=== PATIENT | male | born 1945 | race Caucasian/White ===

== ENCOUNTER → 2019-09-15 12:54 | Oncology outpatient (ONC) | payer OTHER, SELFPAY ==
[2019-09-15 13:27] VITALS: BP 129/73; PULSE 66; RESP 18; TEMP 36.6; O2SAT 97
== END ==
PROVIDERS: Referring Provider Internal Medicine Hematology & Oncology; Visit Provider Internal Medicine Hematology & Oncology
DX: Z45.2 Encounter for adjustment and management of vascular access device (principal); C25.9 Malignant neoplasm of pancreas, unspecified
CPT/HCPCS: 99211